=== PATIENT | male | born 1970 | race Caucasian/White ===

== ENCOUNTER 2019-03-10 20:43 | Emergency (ER) | payer OTHER ==
[~2019-03-10] VITALS: Ht 182.9 cm; Wt 127.0 kg
--- OUTSIDE RECORDS SUMMARY | 2019-03-10 20:46 | XMS ---
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 Randi has no Care Guidelines for this patient. Belle VISIT COUNT (12 MO.) 1 IMELDA Angela TOTAL 1 NOTE: Visits indicate total known visits. ED/UCC VISIT TRACKING (12 MO.) 03/10/2019 20:43 IMELDA Noel OR TYPE: Emergency COMPLAINT: - URINE PROBLEM INPATIENT VISIT TRACKING (12 MO.) No inpatient visits to display in this time frame [email or web address]
[2019-03-10] MEDS ORDERED: METFORMIN HCL500 MG PO (21:04)
[2019-03-10] MEDS ORDERED: OMEPRAZOLE20 MG PO (21:05)
[2019-03-10] MEDS ORDERED: HYDROCHLOROTH12.5 M1 PO (21:05)
[2019-03-10] MEDS ORDERED: LISINOPRIL20 MG (21:05)
[2019-03-10] MEDS ORDERED: LIPITOR20 MG PO (21:06)
[2019-03-10] MEDS ORDERED: BACTRIM DS TAB1 EACH PO (21:50)
== END 2019-03-10 21:58 | disposition home or self-care (01) ==
LOC: ED 20:43
DX: N39.0 Urinary tract infection, site not specified (principal); I10 Essential (primary) hypertension; E11.9 Type 2 diabetes mellitus without complications; Z79.899 Other long term (current) drug therapy; Z79.84 Long term (current) use of oral hypoglycemic drugs
CPT/HCPCS: 81001; 99283

== ENCOUNTER 2022-07-01 06:16 | Day surgery (SDC) | payer OTHER ==
[~2022-07-01] VITALS: Ht 182.9 cm; Wt 122.5 kg
[~2022-07-01 06:16] MED LIST: BACTRIM DS TAB1 EACH PO; GLIPIZIDE ER10 MG PO; HYDROCHLOROTH12.5 M1 PO; LIPITOR20 MG PO; LISINOPRIL20 MG; METFORMIN HCL500 MG PO; OMEPRAZOLE20 MG PO
--- NOTE | 2022-07-01 08:31 | NUR ---
07/01/22 0831 Mackenzie Hairston 0816 PT ARRIVED IN PACU SLEEPY WITH NO C/O'S. ABD SOFT AND PASSING FLATUS. 0825 DR AT BEDSIDE. ALL QUESTIONS ANSWERED.
--- NOTE | 2022-07-02 10:39 | OR ---
[facility] [address] [place], [place] [address] Signed DATE OF OPERATION: 07/01/2022 SURGEON: Cyril Mcintosh MD PREOPERATIVE DIAGNOSIS: Colon screening. POSTOPERATIVE DIAGNOSIS: Adenomatous polyps x2 of sigmoid. PROCEDURE: Total colonoscopy to cecum with cold snare polypectomy x2. ANESTHESIA: Intravenous sedation; fentanyl 100 mcg and Versed 7 mg. INDICATION: This 52-year-old white man is a patient od Dr. Regalado and is referred for screening colonoscopy. He has no family history of colon cancer and no symptoms of bleeding, diarrhea or constipation. He understands the risk of bleeding, infection, and perforation related to colonoscopy and wished to proceed. FINDINGS: The prep was good. Complete colonoscopy was undertaken to the cecum without question. Full intubation of the cecum was accomplished. There were no findings other than two sessile polyps, both adenomas of the sigmoid, both were excised with cold snare technique. DESCRIPTION OF PROCEDURE: The patient was brought to the endoscopy suite and placed in the lateral decubitus position, given intravenous sedation to the point of slurred speech and nystagmus with full cardiopulmonary monitoring. Digital rectal examination was normal. An Olympus video colonoscope was passed in the rectum and manipulated throughout the colon ultimately intubating the cecum itself. The ileocecal valve and ileus and appendiceal orifice were normal. The scope was withdrawn from that point with careful inspection upon withdrawal including irrigation as necessary. In the sigmoid colon, there was a sessile polyp clearly an adenoma less than a cm in size in aggregate. This was excised with cold snare technique and passed for pathology. Further withdrawal in the distal sigmoid showed another similar such polyp similarly excised. Further withdrawal showed on retroflexed view, no evidence of abnormality of the rectum. The scope was removed Electronically Signed By: CYRIL MCINTOSH MD 07/02/22 1039 PATIENT NAME: COURTNEY MONTES OPERATIVE REPORT DATE OF : 72 REPORT #: [id number] PHYSICIAN: CYRIL MCINTOSH MD PCP: LYN REGALADO MD REPORT IS CONFIDENTIAL AND NOT TO BE RELEASED WITHOUT AUTHORIZATION [facility] [address] [place], [place] [address] Signed the patient taken to the recovery room in good condition. CONCLUDING DIAGNOSIS: Polyps x2. PLAN: Recommend repeat colonoscopy in three years, sooner if symptoms should occur. He will return to the ongoing care of Dr. Regalado. MD MANISHA Jauregui/MODL /[id number] cc: Lyn Regalado MD Copies: LYN REGALADO MD ~ Electronically Signed By: CYRIL MCINTOSH MD 07/02/22 1039 PATIENT NAME: COURTNEY MONTES OPERATIVE REPORT DATE OF : 72 REPORT #: [id number] PHYSICIAN: CYRIL MCINTOSH MD PCP: LYN REGALADO MD REPORT IS CONFIDENTIAL AND NOT TO BE RELEASED WITHOUT AUTHORIZATION
--- NOTE | 2022-07-04 10:11 | PATH ---
[facility] [address] [place], [place] [address] Signed SPECIMEN(S): A SIGMOID POLYPS SPECIMEN SOURCE: A. SIGMOID POLYPS CLINICAL HISTORY: Preop: Initial screening colonoscopy, no family history. Postop: Sigmoid polyps x2. FINAL PATHOLOGIC DIAGNOSIS: Colon, sigmoid, polypectomy: - Multiple fragments of tubular adenoma. - There is no evidence of high-grade dysplasia or malignancy. TWK:orlando:C2NR MICROSCOPIC EXAMINATION: Histologic sections of all submitted blocks are examined by light microscopy. These findings, together with the gross examination, support the pathologic diagnosis. GROSS DESCRIPTION: The specimen, labeled and designated "Ring, sigmoid polyps," is received in formalin and consists of two velez soft tissue fragments, ranging from 0.2 to 0.3 cm. Entirely submitted in (A1). VB (under the direct supervision of a pathologist) The Gross Description was prepared using a voice recognition system. The report was reviewed for accuracy; however, sound-alike word errors, addition and/or deletions may occur. If there is any question about this report, please contact Client Services. PERFORMING LABORATORY: The technical component was performed by [facility], [address] [place] [id number] (CLIA# [id number]). [facility], [address], [place] [address] (CLIA# [id number]). Diagnostician: Marin Shannon MD Pathologist Electronically Signed 07/04/2022 PATIENT NAME: COURTNEY RING PATHOLOGY DATE OF : 72 REPORT #: [id number] PHYSICIAN: LYNN PATHOLOGY PCP: LYN JEAN-BAPTISTE MD REPORT IS CONFIDENTIAL AND NOT TO BE RELEASED WITHOUT AUTHORIZATION [address] [place], [place] [address] Signed Copies: ~ PATIENT NAME: COURTNEY RING PATHOLOGY DATE OF : 72 REPORT #: [id number] PHYSICIAN: LYNN PATHOLOGY PCP: LYN JEAN-BAPTISTE MD REPORT IS CONFIDENTIAL AND NOT TO BE RELEASED WITHOUT AUTHORIZATION
== END 2022-07-01 09:00 | disposition home or self-care (01) ==
LOC: DS 06:16 → OPS 06:16 → DS 07:30 → OPS 07:30
PROVIDERS: ATTEND Surgery
PROC: 0DBN8ZZ Excision of Sigmoid Colon, Via Natural or Artificial Opening Endoscopic (ICD-10-PCS; principal; 2022-07-01 07:30)
DX: Z12.11 Encounter for screening for malignant neoplasm of colon (principal); I10 Essential (primary) hypertension; E78.5 Hyperlipidemia, unspecified; Z98.890 Other specified postprocedural states; D12.5 Benign neoplasm of sigmoid colon
CPT/HCPCS: 99153; G0500; J2250; J3010; J7121